=== PATIENT | female | born 1990 | race Caucasian/White ===

== ENCOUNTER → 2020-08-19 17:06 | Observation (INO) ==
[2020-08-19 15:58] LABS: Basophils % 0.2 %; Eosinophils # 0.1 K/mcL (0.0-0.6); Eosinophils % 1.2 %; Hematocrit 34.6 % (35.3-44.9); Hemoglobin 11.5 g/dL (11.5-15.4); Immature Granulocytes % 0.6 % (0-4); Lymphocytes # 1.3 K/mcL (0.6-4.6); Lymphocytes % 16.2 %; Mean Corpuscular HGB Conc 33.2 g/dL (31.6-35.5); Mean Corpuscular Volume 90.3 fL (83.0-100.0); Mean Platelet Volume 10.4 fL (9.4-12.4); Monocytes # 0.6 K/mcL (0.0-1.3); Platelet Count 206 K/mcL (140-400); Red Blood Count 3.83 M/mcL (3.82-4.97); Red Cell Distribution Width 11.9 % (11.5-14.5); Segmented Neutrophils % 74.8 %
[2020-08-19 16:07] LABS: Protein/Creatinine Ratio,Urine 0.13 mg/mg (0.00-0.20)
[2020-08-19 16:34] LABS: Alanine Aminotransferase 8 Units/L (7-52); Aspartate Amino Transferase 16 Units/L (13-39); BUN/Creatinine Ratio 15 (6-26); Blood Urea Nitrogen 7 mg/dL (6-20); Lactate Dehydrogenase 173 Units/L (140-271); Uric Acid 3.1 mg/dL (2.3-7.6); eGFR For African Americans > 60 (> 60); eGFR For Non-African Americans > 60 (> 60)
== END | disposition home or self-care (01) ==
LOC: 1NENULAB
PROVIDERS: ADMIT Obstetrics & Gynecology; ATTEND Obstetrics & Gynecology

== ENCOUNTER 2020-08-30 12:23 | Inpatient (IN) ==
[2020-08-30] MEDS ORDERED: *HR* Labetalol 20 MG/4 ML SYRINGE IVP ONE ×2 (12:29)
[2020-08-30] MEDS ORDERED: EPHEDrine 50 MG/ML VIAL IVP PRN (12:46)
[2020-08-30 12:50] LABS: Protein/Creatinine Ratio,Urine 0.13 mg/mg (0.00-0.20)
[2020-08-30 12:54] LABS: Basophils % 0.3 %; Eosinophils # 0.1 K/mcL (0.0-0.6); Hemoglobin 11.8 g/dL (11.5-15.4); Immature Granulocytes % 0.7 % (0-4); Lymphocytes # 1.4 K/mcL (0.6-4.6); Mean Corpuscular HGB Conc 33.7 g/dL (31.6-35.5); Mean Corpuscular Hemoglobin 30.5 pg (28.0-33.3); Mean Corpuscular Volume 90.4 fL (83.0-100.0); Mean Platelet Volume 10.8 fL (9.4-12.4); Monocytes # 0.6 K/mcL (0.0-1.3); Neutrophils # 6.8 K/mcL (1.6-8.9); Platelet Count 198 K/mcL (140-400); Red Blood Count 3.87 M/mcL (3.82-4.97); Red Cell Distribution Width 12.4 % (11.5-14.5)
[2020-08-30] MEDS ORDERED: Epidural Premix (fent/bupiv) 110 ML EP SCH (13:00)
[2020-08-30 13:15] LABS: Alanine Aminotransferase 7 Units/L (7-52); Aspartate Amino Transferase 11 Units/L (13-39); BUN/Creatinine Ratio 11 (6-26); Blood Urea Nitrogen 6 mg/dL (6-20); Lactate Dehydrogenase 118 Units/L (140-271); Uric Acid 3.9 mg/dL (2.3-7.6); eGFR For African Americans > 60 (> 60); eGFR For Non-African Americans > 60 (> 60)
[2020-08-30] MEDS ORDERED: NIFEdipine Immed Rel 10 MG CAPSULE PO ONE ×2 (13:40→19:59)
[2020-08-30] MEDS ORDERED: miSOPROStoL 25 MCG TABLET VG PRN (13:42)
[2020-08-30] MEDS ORDERED: Ringers Solution, Lactated 1,000 ML ONE (19:44)
[2020-08-30] MEDS ORDERED: Naloxone 0.4 MG/ML INJ IVP PRN (19:45)
[2020-08-30] MEDS ORDERED: Famotidine 20 MG/2 ML VIAL IVP PRN (19:45)
[2020-08-30] MEDS ORDERED: Metoclopramide 10 MG/2 ML VIAL IVP PRN (19:45)
[2020-08-30] MEDS ORDERED: Ringers Solution, Lactated 1,000 ML IVC SCH (19:45)
[2020-08-30] MEDS ORDERED: Oxytocin 20 units/ LR 1000 mL 20 UNIT/1,000 ML BAG IVC SCH (20:00)
[2020-08-30 20:53] LABS: Adenovirus Not Detected (Not Detect); Bordetella Pertussis Not Detected (Not Detect); Chlamydophila pneumoniae Not Detected (Not Detect); Coronavirus 229E Not Detected (Not Detect); Coronavirus HKU1 Not Detected (Not Detect); Coronavirus NL63 Not Detected (Not Detect); Coronavirus OC43 Not Detected (Not Detect); Human Metapneumovirus Not Detected (Not Detect); Human Rhinovirus/Enterovirus Not Detected (Not Detect); Influenza A Subtype 2009 H1 Not Detected (Not Detect); Influenza B Not Detected (Not Detect); Mycoplasma pneumoniae Not Detected (Not Detect); Parainfluenza Virus 1 Not Detected (Not Detect); Parainfluenza Virus 2 Not Detected (Not Detect); Parainfluenza Virus 3 Not Detected (Not Detect); Parainfluenza Virus 4 Not Detected (Not Detect); Respiratory Syncytial Virus Not Detected (Not Detect); SARS-CoV-2 Not Detected (Not Detect)
[2020-08-31] MEDS ORDERED: Lanolin 7 G OINT...G. TP PRN (06:01)
[2020-08-31] MEDS ORDERED: Oxytocin 20 units/ LR 1000 mL 20 UNIT/1,000 ML BAG IVC SCH (06:01)
[2020-08-31] MEDS ORDERED: Acetaminophen 325 MG TABLET PO PRN (06:01)
[2020-08-31] MEDS ORDERED: *HR* HYDROcodone/Acet 5/325 mg TABLET PO PRN (06:01)
[2020-08-31] MEDS ORDERED: Benzocaine/Menthol 56 GM AEROSOL SPRAY TP PRN (06:01)
[2020-08-31] MEDS: Ibuprofen 600 MG TABLET PO PRN ×2 (07:55→19:46)
[2020-08-31] MEDS: Prenatal Vit/FA 1 EACH TABLET PO SCH (07:55)
[2020-08-31 11:10] LABS: Basophils % 0.2 %; Eosinophils % 0.2 %; Hematocrit 27.9 % (35.3-44.9); Immature Granulocytes % 0.5 % (0-4); Lymphocytes # 1.1 K/mcL (0.6-4.6); Lymphocytes % 8.7 %; Mean Corpuscular HGB Conc 33.3 g/dL (31.6-35.5); Mean Corpuscular Hemoglobin 29.7 pg (28.0-33.3); Mean Corpuscular Volume 89.1 fL (83.0-100.0); Mean Platelet Volume 10.7 fL (9.4-12.4); Monocytes % 8.2 %; Neutrophils # 10.2 K/mcL (1.6-8.9); Platelet Count 143 K/mcL (140-400); Red Blood Count 3.13 M/mcL (3.82-4.97); Red Cell Distribution Width 12.2 % (11.5-14.5); Segmented Neutrophils % 82.2 %; White Blood Count 12.4 K/mcL (4.3-11.1)
[2020-08-31 11:11] LABS: Hemoglobin 9.3 g/dL (11.5-15.4)
[2020-08-31 11:31] LABS: Alanine Aminotransferase 9 Units/L (7-52); Aspartate Amino Transferase 27 Units/L (13-39); BUN/Creatinine Ratio 13 (6-26); Blood Urea Nitrogen 6 mg/dL (6-20); Lactate Dehydrogenase 167 Units/L (140-271); Uric Acid 4.3 mg/dL (2.3-7.6); eGFR For African Americans > 60 (> 60); eGFR For Non-African Americans > 60 (> 60)
[2020-08-31] MEDS ORDERED: miSOPROStoL 100 MCG TABLET RC ONE (12:37)
[2020-09-01 07:52] VITALS: BP 126/80
[2020-09-01] MEDS: Ibuprofen 600 MG TABLET PO PRN (07:57)
[2020-09-01] MEDS: Prenatal Vit/FA 1 EACH TABLET PO SCH (07:57)
== END 2020-09-01 12:38 | disposition home or self-care (01) | DRG 768 ==
LOC: 1NENULAB → 1NENUOBS 08-31 05:59
PROVIDERS: ADMIT Obstetrics & Gynecology; ATTEND Obstetrics & Gynecology